=== PATIENT | male | born 1970 | race Caucasian/White ===

== ENCOUNTER 2020-11-17 02:29 | Outpatient (CLI) | payer OTHER, SELFPAY ==
[2020-11-17 18:38] LABS: SARS-CoV-2 RNA PCR Negative
== END 2020-11-17 02:30 | disposition home or self-care (01) ==
LOC: ANHCOVIDDT 02:30
PROVIDERS: PCP Internal Medicine; Visit Provider Internal Medicine Gastroenterology
DX: Z01.812 Encounter for preprocedural laboratory examination (principal); Z20.822 Contact with and (suspected) exposure to COVID-19
CPT/HCPCS: C9803; U0003; U0005

== ENCOUNTER 2020-11-20 01:17 | Day surgery (SDC) | payer OTHER, SELFPAY ==
[2020-11-12 13:28] VITALS: BMI 35.6
[2020-11-20 06:14] VITALS: BP 153/84; PULSE 66; RESP 18; O2SAT 96; BMI 34.0
[2020-11-20] MEDS: LACTATED RINGERS 1,000 ML 150 ML IV CONT (06:26)
[2020-11-20 06:29] LABS: Glucose Point of Care 169 (65-105)
--- NOTE | 2020-11-20 07:08 | WPDANESEPP ---
Anes - Eval Pre Procedure Procedure: Operation Date: 11/20/20 07:30 Proposed Procedures p Screening Colonoscopy - Geronimo Gurrola MD Date/Time: 11/20/20 07:08 Pre Op Diagnosis: Neoplasm Screening Patient Data Age: 50 Gender: M Height: 1.8 m Weight: 110.8 kg Last Vital Signs Pulse 66 11/20/20 06:14 Resp 18 11/20/20 06:14 BP 153/84 H 11/20/20 06:14 Pulse Ox 96 11/20/20 06:14 Allergies Allergy/AdvReac Type Severity Reaction Status Date / Time meperidine AdvReac Severe SEVERE ABD Verified 11/20/20 06:12 CRAMPING codeine AdvReac Unknown Stomach Verified 11/20/20 06:12 Pain Home Medications Medication Instructions Recorded Confirmed Type amlodipine 10 mg tablet 10 mg PO DAILY #90 tablet 06/25/20 11/12/20 Rx lisinopril 10 mg tablet 10 mg PO DAILY #90 tablet 06/25/20 11/12/20 Rx sitagliptin 50 mg-metformin 1,000 1 tablet PO BID #180 tablet 06/25/20 11/12/20 Rx mg tablet empagliflozin 25 mg tablet 25 mg PO DAILY #90 tablet 09/21/20 11/12/20 Rx hydrocodone 10 mg-acetaminophen 1 tablet PO .COMPLEX PRN #150 10/26/20 11/12/20 Rx 325 mg tablet tablet sodium,potassium,mag sulfates 17.5 See Rx Instructions PO .COMPLEX 11/12/20 11/12/20 Rx gram-3.13 gram-1.6 gram oral soln #354 ml glimepiride 2 mg tablet 2 mg PO BID #180 tablet 11/19/20 Rx Laboratory Tests 11/20/20 06:25 POC Capillary Glucose 169 mg/dl H mg/dl (65-105) Patient hx anesthesia problems: none Family hx anesthesia problems: none PMFSH Past Medical History Medical History HLD (hyperlipidemia) HTN (hypertension) Kidney stones, calcium oxalate Obesity Smoker Surgical History Surgical History (Updated 11/20/20 @ 07:09 by Rolando Mccrary CRNA) H/O spinal fusion Family History Family History Father Hypertension Family history of diabetes mellitus in first degree relative Patient's father is Diabetes mellitus Family history of cardiovascular disease Sibling Patient's sister is in good health Patient's brother is in good health Mother Family history of malignant neoplasm of breast in first degree relative Social History Social History (Updated 08/28/20 @ 13:03 by Jabier Iglesias [facility]) Smoking packs per day: 1 Smoking cigarettes per day: 20.0 Years smoked: 30 Smoking pack-years: 30.00 Smoking status: Former smoker Tobacco type: cigarettes and e-cigarettes/vaping Smoking end date: 06/22/16 Alcohol intake: never Substance use: never Substance use type: does not use Living arrangements: alone Gender identity (if verbalized by the patient): Male Spiritual care concerns: No Exam Day of Procedure 11/20/20 07:08
--- NOTE | 2020-11-20 07:34 | PM.HPGS ---
History of Present Illness History of Present Illness Consent: Risks, benefits, and alternatives have been discussed and questions answered. Patient agrees to proceed with procedure. Chief complaint: Neoplasm Screening Narrative: Kiran Nagel is a 50 year old male here for first screening colonoscopy Review of Systems Constitutional: Constitutional: Denies headache(s) and Denies weakness Eyes: Eyes: Denies blurry vision ENT: Reports Normal hearing present, Denies headache(s) and Denies neck pain Cardiovascular: Cardiovascular: Denies chest pain and Denies dyspnea Respiratory: Respiratory: Denies dyspnea Gastrointestinal: Gastrointestinal: Reports no additional gastrointestinal complaints Genitourinary: Genitourinary: Denies dysuria Musculoskeletal: Musculoskeletal: Denies neck pain Integumentary/Breasts: Skin/Breast: Denies dry skin Neurologic: Reports Normal hearing present, Denies headache(s) and Denies weakness Psychiatric: Psychiatric: Denies anxiety Endocrine: Endocrine: Denies change in body appearance Hematologic/Lymphatic: Hematologic/Lymphatic: Denies easy bleeding Allergic/Immunologic: Allergic/Immunologic: Denies urticaria [facility] Past Medical History Medical History Colon cancer screening HLD (hyperlipidemia) HTN (hypertension) Kidney stones, calcium oxalate Obesity Smoker Surgical History Surgical History (Updated 11/20/20 @ 07:09 by Rolando Mccrary CRNA) H/O spinal fusion Family History Family History Father Hypertension Family history of diabetes mellitus in first degree relative Patient's father is Diabetes mellitus Family history of cardiovascular disease Sibling Patient's sister is in good health Patient's brother is in good health Mother Family history of malignant neoplasm of breast in first degree relative Social History Social History (Updated 08/28/20 @ 13:03 by Jabier Iglesias CMA) Smoking packs per day: 1 Smoking cigarettes per day: 20.0 Years smoked: 30 Smoking pack-years: 30.00 Smoking status: Former smoker Tobacco type: cigarettes and e-cigarettes/vaping Smoking end date: 06/22/16 Alcohol intake: never Substance use: never Substance use type: does not use Living arrangements: alone Gender identity (if verbalized by the patient): Male Spiritual care concerns: No Meds Home Medications and Allergies Home Medications Medication Instructions Recorded Confirmed Type amlodipine 10 mg tablet 10 mg PO DAILY #90 tablet 06/25/20 11/12/20 Rx lisinopril 10 mg tablet 10 mg PO DAILY #90 tablet 06/25/20 11/12/20 Rx sitagliptin 50 mg-metformin 1,000 1 tablet PO BID #180 tablet 06/25/20 11/12/20 Rx mg tablet empagliflozin 25 mg tablet 25 mg PO DAILY #90 tablet 09/21/20 11/12/20 Rx hydrocodone 10 mg-acetaminophen 1 tablet PO .COMPLEX PRN #150 10/26/20 11/12/20 Rx 325 mg tablet tablet sodium,potassium,mag sulfates 17.5 See Rx Instructions PO .COMPLEX 11/12/20 11/12/20 Rx gram-3.13 gram-1.6 gram oral soln #354 ml glimepiride 2 mg tablet 2 mg PO BID #180 tablet 11/19/20 Rx Allergies Allergy/AdvReac Type Severity Reaction Status Date / Time meperidine AdvReac Severe SEVERE ABD Verified 11/20/20 06:12 CRAMPING codeine AdvReac Unknown Stomach Verified 11/20/20 06:12 Pain Vital Signs Vital Signs - 24 hr 11/20/20 06:14 Pulse Rate 66 Respiratory Rate 18 Blood Pressure 153/84 H Pulse Oximetry 96 Exam Const: General: comfortable and no acute distress HENMT: General nose exam: Normal nares present Eyes: General: appearance normal, both eyes and all related structures Neck: Neck: no JVD Resp: Auscultation: clear to auscultation bilaterally Cardio: Rate: regular rate Rhythm: regular rhythm GI: Inspection: non-distended GI Palp: Yes Soft to palpation Skin: General skin exam: normal color Neuro: General: gait normal
[2020-11-20 07:48] VITALS: BP 115/69; PULSE 56; RESP 24; O2SAT 97
--- NOTE | 2020-11-20 07:56 | WPDANESEPPF ---
Anes - Initial Pre Proc Eval Procedure: Operation Date: 11/20/20 07:30 Proposed Procedures p Screening Colonoscopy - Geronimo Gurrola MD Date/Time: 11/20/20 07:56 Surgeon: Geronimo Gurrola MD Pre Op Diagnosis: Neoplasm Screening Patient Data Age: 50 Gender: M Height: 5 ft 11 in Weight: 110.8 kg Last Vital Signs Pulse 56 L 11/20/20 07:48 Resp 24 H 11/20/20 07:48 BP 115/69 11/20/20 07:48 Pulse Ox 97 11/20/20 07:48 Allergies Allergy/AdvReac Type Severity Reaction Status Date / Time meperidine AdvReac Severe SEVERE ABD Verified 11/20/20 06:12 CRAMPING codeine AdvReac Unknown Stomach Verified 11/20/20 06:12 Pain Home Medications Medication Instructions Recorded Confirmed Type amlodipine 10 mg tablet 10 mg PO DAILY #90 tablet 06/25/20 11/12/20 Rx lisinopril 10 mg tablet 10 mg PO DAILY #90 tablet 06/25/20 11/12/20 Rx sitagliptin 50 mg-metformin 1,000 1 tablet PO BID #180 tablet 06/25/20 11/12/20 Rx mg tablet empagliflozin 25 mg tablet 25 mg PO DAILY #90 tablet 09/21/20 11/12/20 Rx hydrocodone 10 mg-acetaminophen 1 tablet PO .COMPLEX PRN #150 10/26/20 11/12/20 Rx 325 mg tablet tablet sodium,potassium,mag sulfates 17.5 See Rx Instructions PO .COMPLEX 11/12/20 11/12/20 Rx gram-3.13 gram-1.6 gram oral soln #354 ml glimepiride 2 mg tablet 2 mg PO BID #180 tablet 11/19/20 Rx Laboratory Tests 11/20/20 06:25 POC Capillary Glucose 169 mg/dl H mg/dl (65-105) Patient hx anesthesia problems: none Family hx anesthesia problems: none PMFSH Past Medical History Medical History Colon cancer screening HLD (hyperlipidemia) HTN (hypertension) Kidney stones, calcium oxalate Obesity Smoker Surgical History Surgical History (Updated 11/20/20 @ 07:09 by Rolando Mccrary CRNA) H/O spinal fusion Family History Family History Father Hypertension Family history of diabetes mellitus in first degree relative Patient's father is Diabetes mellitus Family history of cardiovascular disease Sibling Patient's sister is in good health Patient's brother is in good health Mother Family history of malignant neoplasm of breast in first degree relative Social History Social History (Updated 08/28/20 @ 13:03 by Jabier Iglesias [facility]) Smoking packs per day: 1 Smoking cigarettes per day: 20.0 Years smoked: 30 Smoking pack-years: 30.00 Smoking status: Former smoker Tobacco type: cigarettes and e-cigarettes/vaping Smoking end date: 06/22/16 Alcohol intake: never Substance use: never Substance use type: does not use Living arrangements: alone Gender identity (if verbalized by the patient): Male Spiritual care concerns: No Anes - Eval Final PreProcedure Day of Procedure 11/20/20 07:56 Patient weight: obese Heart: regular rate and rhythm Lungs: clear to auscultation Airway: Mallampati scale Neurological: alert and oriented Last oral intake: >/= 8 hours ASA classification: III Emergent: no Anesthetic plan: proceed Anesthesia type and monitoring: general GIVS and standard monitoring Informed Consent: The patient's anesthetic plan and its attendant risks and benefits were discussed with the patient/family/POA. Questions were solicited and answers provided to the satisfaction of the patient/family/POA.
[2020-11-20 07:58] VITALS: BP 108/70; PULSE 57; RESP 24; O2SAT 96
[2020-11-20 08:08] VITALS: BP 111/77; PULSE 62; RESP 20; O2SAT 99
== END 2020-11-20 08:19 | disposition home or self-care (01) ==
PROVIDERS: Family Provider Family Medicine; PCP Internal Medicine; Visit Provider Internal Medicine Gastroenterology
PROC: 0DJD8ZZ Inspection of Lower Intestinal Tract, Via Natural or Artificial Opening Endoscopic (ICD-10-PCS; CPT 45378; principal; 2020-11-20 07:30)
DX: Z12.11 Encounter for screening for malignant neoplasm of colon (principal); D12.3 Benign neoplasm of transverse colon; K64.8 Other hemorrhoids; I10 Essential (primary) hypertension; E78.5 Hyperlipidemia, unspecified; E66.9 Obesity, unspecified; Z68.34 Body mass index [BMI] 34.0-34.9, adult; Z87.891 Personal history of nicotine dependence
CPT/HCPCS: 45380; 88305; C9803; J2704; J7120; U0003; U0005

== ENCOUNTER 2023-08-08 07:49 | Outpatient (CLI) | payer OTHER, SELFPAY ==
--- NOTE | ~2023-08-08 | XR_ITS ---
XR lumbar spine min 4V 08/08/2023 08:11 Indication: Post laminectomy syndrome Procedure: 6 views lumbar spine Comparison: 11/12/2013 Findings: Status post posterior spinal fusion and discectomy at L4-5. There is disc narrowing and end plate degenerative change at all lumbar levels. There is a stone in the left renal pelvis measuring 1 1 x 7 mm. There is mild dextroscoliosis. Sacral foramen are symmetric. Impression: 1: Severe lumbar spondylosis with posterior fusion at L4-5. 2: Left nephrolithiasis. Reviewed, dictated and finalized at location L. Impression: 1: Severe lumbar spondylosis with posterior fusion at L4-5. 2: Left nephrolithiasis.
== END 2023-08-08 07:50 | disposition home or self-care (01) ==
LOC: ANHIMG 07:53
PROVIDERS: PCP Nurse Practitioner Family; Visit Provider Physician Assistant
DX: M96.1 Postlaminectomy syndrome, not elsewhere classified (principal); M47.896 Other spondylosis, lumbar region; N20.0 Calculus of kidney
CPT/HCPCS: 72110